=== PATIENT | female | born 1930 | race Caucasian/White ===

== ENCOUNTER 2017-04-23 09:28 | Emergency (ER) | payer OTHER, MEDICARE ==
[~2017-04-23] VITALS: Ht 167.6 cm; Wt 59.3 kg
[2017-04-23 09:32] VITALS: TEMP 36.7; Ht 167.6 cm; Wt 59.3 kg
[2017-04-23] MEDS ORDERED: SODIUM CHLORIDE 0.9% 500ML 500 ML IV STA (10:02)
--- NOTE | 2017-04-23 10:05 | EMERGENCY ROOM VISIT NOTE ---
History Report prepared by Eri: Kalyan Naqvi Under the Supervision of: Dr. Cecilio Goodson M.D. First contact with patient: 09:57 Chief Complaint: DIARRHEA Stated Complaint: DIARRHEA Nursing Triage Summary: Diarrhea for weeks. Has been seen at [facility]. Taking immodium at home without much relief. Slight "stomach twinges", but otherwise no abdominal pain. Denies fever or chills. Slight nausea, no vomiting. History of Present Illness The patient is an 87 year old female who presents to the Emergency Room with complaints of persistent diarrhea that started over a week ago. She says that her diarrhea is "nonstop" and that she has around 6 to 8 episodes per day. The patient's notes that the patient has been seen at the [facility] for this diarrhea, and had some tests done. The patient adds that she has been getting "twinges" in her abdomen, but no abdominal pain. She denies any blood in the diarrhea. The patient also denies any recent antibiotic use, recent questionable food sources, or any visitations to [facility] or campsites. The patient's states that the patient takes heart medication as well as Aspirin. The patient has been taking Imodium for the diarrhea, and last took it this morning. Source of History: patient, spouse/significant other Onset: Over a week ago Position: other (global - diarrhea) Symptom Intensity: 6 to 8 episodes per day Timing: other (persistent) Associated Symptoms: No abdominal pain, No hematochezia Note: Associated symptoms: "Twinges" in abdomen. Review of Systems See HPI for pertinent positives & negatives. A total of 10 systems reviewed and were otherwise negative. Past Medical & Surgical Medical Problems: (1) Heart disease Family History Cancer Social History Smoking Status: Never Smoker Smokeless Tobacco Use: No Alcohol Use: none Marital Status: Housing Status: lives with family Occupation Status: retired Current/Historical Medications Scheduled Ascorbic Acid (Vitamin C), 1,000 MG PO DAILY Aspirin (Aspirin Ec), 325 MG PO DAILY Furosemide (Lasix), 20 MG PO DIRECTED Levothyroxine Sodium (Synthroid), 125 MCG PO QAM Metoprolol Tartrate (Lopressor) (Lopressor), 25 MG PO BID Multiple Vitamins W/ Minerals (Centrum Silver 50+Women), 1 TAB PO DAILY [Lovaza], 1 TAB PO QAM Allergies Coded Allergies: Statins (Unverified Allergy, Unknown, UNKNOWN, 04/23/17) Physical Exam Vital Signs Date Time Temp Pulse Resp B/P (MAP) Pulse Ox O2 Delivery O2 Flow Rate FiO2 04/23/17 13:20 67 21 137/72 98 04/23/17 13:12 56 19 93 04/23/17 13:02 137/56 04/23/17 12:42 68 28 04/23/17 12:37 18 04/23/17 12:33 112/61 04/23/17 12:07 65 14 04/23/17 12:02 136/76 04/23/17 10:37 50 22 98 04/23/17 10:32 129/61 04/23/17 10:28 49 99 04/23/17 10:03 130/76 04/23/17 09:58 70 04/23/17 09:55 50 04/23/17 09:50 136/60 04/23/17 09:32 36.7 119 20 119/71 100 Room Air Physical Exam GENERAL: Patient is a healthy-appearing well-nourished HEAD: Normocephalic atraumatic EYES: Ocular movements intact pupils equal and react to light OROPHARYNX mucous membranes are moist no exudates present no erythema or edema present NECK: Supple no nuchal rigidity CHEST: Good equal expansion LUNGS: Clear and equal to auscultation CARDIAC: Normal S1 and S2 ABDOMEN: Soft nontender no guarding BACK: No CVA tenderness EXTREMITIES: No pain upon palpation normal muscle strength in all groups no clubbing cyanosis or edema NEURO: Patient is following commands is answering questions appropriately. Alert and oriented x3 Cranial Nerves 2-12 grossly intact Medical Decision & Procedures ER Provider Diagnostic Interpretation: CT results as stated below per my review and radiologist interpretation: CT OF THE ABDOMEN AND PELVIS WITH CONTRAST CLINICAL HISTORY: Diarrhea. COMPARISON STUDY: None. TECHNIQUE: Following IV administration of 95 mL of Optiray-320, axial images of the abdomen and pelvis were obtained from the lung bases to the proximal femurs. Images were reviewed in the axial, sagittal, and coronal planes. IV contrast was administered without complication. CT DOSE: 356.10 mGy.cm FINDINGS: The heart is moderately enlarged. Several subcentimeter hypodense hepatic lesions suggests cysts. There is a lobulated 2.6 cm intermediate attenuation segment 4 liver lesion. This is low suspicion. There are several renal cysts. Several subcentimeter renal lesions too small to characterize. The spleen, adrenal glands and pancreas are unremarkable. There is no biliary or pancreatic ductal dilatation. There is no evidence for a bowel obstruction. The gallbladder is mildly distended without pericholecystic infiltration. The appendix is normal. There is no free fluid or lymphadenopathy. No suspicious skeletal lesions are identified. Mild loss of height of the superior plate of L1 is chronic. No pneumatosis, free air or portal venous gas is present. There is moderate plaque of the abdominal aorta and branch vessels. No aneurysmal dilatation is present. Major vasculature is patent. IMPRESSION: 1. No acute process within the abdomen or pelvis. 2. 2.6 cm intermediate attenuation segment 4 lesion. This is indeterminate but favors a cyst and is low suspicion. 3. Moderate cardiomegaly. Electronically signed by: Toby Funes M.D. 04/23/2017 11:24 AM Dictated Date/Time: 04/23/2017 11:16 AM Laboratory Results 04/23/17 09:55 Red Blood Count 4.60, Mean Corpuscular Volume 98.9, Mean Corpuscular Hemoglobin 32.8, Mean Corpuscular Hemoglobin Concent 33.2, Mean Platelet Volume 11.3, Neutrophils (%) (Auto) 64.6, Lymphocytes (%) (Auto) 24.7, Monocytes (%) (Auto) 8.9, Eosinophils (%) (Auto) 0.8, Basophils (%) (Auto) 0.8, Neutrophils # (Auto) 3.33, Lymphocytes # (Auto) 1.27, Monocytes # (Auto) 0.46, Eosinophils # (Auto) 0.04, Basophils # (Auto) 0.04 04/23/17 09:55 Test 04/23/17 09:55 04/23/17 11:49 White Blood Count 5.15 K/uL (4.8-10.8) Red Blood Count 4.60 M/uL (4.2-5.4) Hemoglobin 15.1 g/dL (12.0-16.0) Hematocrit 45.5 % (37-47) Mean Corpuscular Volume 98.9 fL (80-100) Mean Corpuscular Hemoglobin 32.8 pg (25-34) Mean Corpuscular Hemoglobin Concent 33.2 g/dl (32-36) Platelet Count 233 K/uL (130-400) Mean Platelet Volume 11.3 fL (7.4-10.4) Neutrophils (%) (Auto) 64.6 % Lymphocytes (%) (Auto) 24.7 % Monocytes (%) (Auto) 8.9 % Eosinophils (%) (Auto) 0.8 % Basophils (%) (Auto) 0.8 % Neutrophils # (Auto) 3.33 K/uL (1.4-6.5) Lymphocytes # (Auto) 1.27 K/uL (1.2-3.4) Monocytes # (Auto) 0.46 K/uL (0.11-0.59) Eosinophils # (Auto) 0.04 K/uL (0-0.5) Basophils # (Auto) 0.04 K/uL (0-0.2) RDW Standard Deviation 47.7 fL (36.4-46.3) RDW Coefficient of Variation 13.3 % (11.5-14.5) Immature Granulocyte % (Auto) 0.2 % Immature Granulocyte # (Auto) 0.01 K/uL (0.00-0.02) Anion Gap 7.0 mmol/L (3-11) Est Creatinine Clear Calc Drug Dose 33.1 ml/min Estimated GFR () 51.9 Estimated GFR (Non- 44.8 BUN/Creatinine Ratio 16.3 (10-20) Calcium Level 9.0 mg/dl (8.5-10.1) Total Bilirubin 0.7 mg/dl (0.2-1) Direct Bilirubin 0.2 mg/dl (0-0.2) Aspartate Amino Transf (AST/SGOT) 24 U/L (15-37) Alanine Aminotransferase (ALT/SGPT) 18 U/L (12-78) Alkaline Phosphatase 51 U/L (45-117) Total Protein 7.6 gm/dl (6.4-8.2) Albumin 3.3 gm/dl (3.4-5.0) Lipase 68 U/L (73-393) Urine Color YELLOW Urine Appearance CLEAR (CLEAR) Urine pH 5.0 (4.5-7.5) Urine Specific [place] 1.035 (1.000-1.030) Urine Protein NEG (NEG) Urine Glucose (UA) NEG (NEG) Urine Ketones NEG (NEG) Urine Occult Blood NEG (NEG) Urine Nitrite NEG (NEG) Urine Bilirubin NEG (NEG) Urine Urobilinogen NEG (NEG) Urine Leukocyte Esterase SMALL (NEG) Urine WBC (Auto) 10-30 /hpf (0-5) Urine RBC (Auto) 0-4 /hpf (0-4) Urine Hyaline Casts (Auto) 1-5 /lpf (0-5) Urine Epithelial Cells (Auto) 10-20 /lpf (0-5) Urine Bacteria (Auto) NEG (NEG) Medications Administered Medications (Trade) Dose Ordered Sig/Kim Route Start Time Stop Time Status Last Admin Dose Admin Sodium Chloride 500 ml @ 999 mls/hr Q31M STAT IV 04/23/17 10:02 04/23/17 10:32 DC 04/23/17 10:16 999 MLS/HR ED Course 0958: Past medical records reviewed. The patient was evaluated in room A10. A complete history and physical examination was performed. 1002: Ordered NSS 500 ml @ 999 mls/hr IV. 1234: Upon reexamination the patient is resting comfortably. I discussed results and treatment plan with the patient. She verbalizes agreement and understanding. The patient is ready for discharge. Medical Decision Prior records/ancillary studies reviewed. Triage Nursing notes reviewed. Differential diagnosis: Etiologies such as appendicitis, diverticulitis, PUD, biliary pathology, UTI, pancreatitis, obstruction, mesenteric ischemia, aortic pathology, infections, inflammatory bowel disease, renal colic, as well as others were entertained. Medication Reconciliation: I attest that I have personally reviewed the patient' s current medication list Blood Pressure Screening: Patient was found to have normal blood pressure on screening and does not require follow up. This is an 87-year-old female who presents emergency department complaining of severe diarrhea. I will note that the patient was unable to provide a stool sample despite being in the emergency department for 3 hours. She just had laboratory work performed at [facility]. Her creatinine is actually improved from that visit. The patient did take Imodium this morning and I believe this may have stopped her diarrhea and she does not have an elevation in her white blood count has a normal renal profile has a normal liver profile has a normal lipase. Serial abdominal examinations were performed on the patient in the emergency department and at no tender the patient exhibit abdominal tenderness or surgical abdomen. CT the abdomen pelvis does not reveal any acute process. I do believe that the patient as well as to be discharged home for follow-up with her primary care physician. Patient and were in agreement with the treatment plan. Impression Primary Impression: Diarrhea Scribe Attestation The scribe's documentation has been prepared under my direction and personally reviewed by me in its entirety. I confirm that the note above accurately reflects all work, treatment, procedures, and medical decision making performed by me. Departure Information Dispostion Home / Self-Care Referrals No Doctor, Assigned (PCP) Dane Jimenez MD Doberstein, Manny Cordoba MD Forms HOME CARE DOCUMENTATION FORM, IMPORTANT VISIT INFORMATION, WORK / SCHOOL INSTRUCTIONS Patient Instructions Diarrhea, ED Diet Vomiting Diarrhea, ED Vomiting Diarrhea Nonspecific Ad, My [facility] Additional Instructions Take probiotic yogurt for diarrhea Follow up with Dr Jimenez's office for continued diarrhea You have been examined and treated today on an emergency basis only. This is not a substitute for, or an effort to provide, complete comprehensive medical care. It is impossible to recognize and treat all injuries or illnesses in a single emergency department visit. It is therefore important that you follow up closely with Dr Lopez. Call as soon as possible for an appointment. Thank you for your time and consideration. I look forward to speaking with you again soon. Please don't hesitate to call us if you have any questions. Problem Qualifiers Primary Impression: Diarrhea Diarrhea type: unspecified type Qualified Codes: R19.7 - Diarrhea, unspecified
[2017-04-23] MEDS ORDERED: SYN125 PO (10:09)
[2017-04-23] MEDS ORDERED: ASPI325T39 PO (10:09)
[2017-04-23] MEDS ORDERED: METO25TA56 PO (10:09)
[2017-04-23] MEDS ORDERED: LOVAZA PO (10:09)
[2017-04-23] MEDS ORDERED: ASCA500 PO (10:09)
[2017-04-23] MEDS ORDERED: FURO-85 PO (10:09)
[2017-04-23] MEDS ORDERED: MULT-1092 PO (10:09)
[2017-04-23 10:15] LABS: BASO % 0.8 %; BASO ABS # 0.04 K/uL (0-0.2); COMPLETE YES; EOS % 0.8 %; HEMATOCRIT 45.5 % (37-47); IG% 0.2 %; LYMPH % 24.7 %; LYMPH ABS # 1.27 K/uL (1.2-3.4); MEAN CELL VOLUME 98.9 fL (80-100); MEAN CORPUSCULAR HEMOGLOBIN 32.8 pg (25-34); MEAN CORPUSCULAR HGB CONC 33.2 g/dl (32-36); MEAN PLATELET VOLUME 11.3 fL (7.4-10.4); MONO % 8.9 %; NEUT % 64.6 %; PLATELET COUNT 233 K/uL (130-400); WHITE BLOOD COUNT 5.15 K/uL (4.8-10.8)
[2017-04-23] MEDS ORDERED: OPTIRAY 320 IV PRN (10:15)
[2017-04-23 10:34] LABS: BUN/CREATININE RATIO 16.3 (10-20); CREATININE 1.1 mg/dl (0.60-1.20); POTASSIUM 3.7 mmol/L (3.5-5.1)
--- NOTE | 2017-04-23 11:26 | DIAGNOSTIC IMAGING REPORT ---
CT OF THE ABDOMEN AND PELVIS WITH CONTRAST CLINICAL HISTORY: Diarrhea. COMPARISON STUDY: None. TECHNIQUE: Following IV administration of 95 mL of Optiray-320, axial images of the abdomen and pelvis were obtained from the lung bases to the proximal femurs. Images were reviewed in the axial, sagittal, and coronal planes. IV contrast was administered without complication. CT DOSE: 356.10 mGy.cm FINDINGS: The heart is moderately enlarged. Several subcentimeter hypodense hepatic lesions suggests cysts. There is a lobulated 2.6 cm intermediate attenuation segment 4 liver lesion. This is low suspicion. There are several renal cysts. Several subcentimeter renal lesions too small to characterize. The spleen, adrenal glands and pancreas are unremarkable. There is no biliary or pancreatic ductal dilatation. There is no evidence for a bowel obstruction. The gallbladder is mildly distended without pericholecystic infiltration. The appendix is normal. There is no free fluid or lymphadenopathy. No suspicious skeletal lesions are identified. Mild loss of height of the superior plate of L1 is chronic. No pneumatosis, free air or portal venous gas is present. There is moderate plaque of the abdominal aorta and branch vessels. No aneurysmal dilatation is present. Major vasculature is patent. IMPRESSION: 1. No acute process within the abdomen or pelvis. 2. 2.6 cm intermediate attenuation segment 4 lesion. This is indeterminate but favors a cyst and is low suspicion. 3. Moderate cardiomegaly. Electronically signed by: Toby Funes M.D. 04/23/2017 11:24 AM Dictated Date/Time: 04/23/2017 11:16 AM
[2017-04-23 12:20] LABS: URINE APPEARANCE CLEAR (CLEAR); URINE BILIRUBIN NEG (NEG); URINE COLOR YELLOW; URINE NITRITE NEG (NEG); URINE SPECIFIC GRAVITY 1.035 (1.000-1.030); UROBILINOGEN NEG (NEG)
[2017-04-23 12:21] LABS: MANUAL MICROSCOPIC REQUIRED? NO; REVIEW REQ? NO
[2017-04-23 13:20] VITALS: BP 137/72; PULSE 67; O2SAT 98
== END 2017-04-23 13:32 | disposition home or self-care (01) ==
LOC: C.EDB 09:31 → C.EDA 13:32
DX: R19.7 Diarrhea, unspecified (principal); I51.9 Heart disease, unspecified; Z79.82 Long term (current) use of aspirin